=== PATIENT | male | born 1985 | race Caucasian/White ===

== ENCOUNTER 2019-06-14 14:05 | Emergency (ER) | payer SELFPAY ==
[~2019-06-14] VITALS: Ht 170.2 cm; Wt 96.6 kg
[2019-06-14 15:19] VITALS: BP 147/100; Ht 170.2 cm; Wt 96.6 kg
== END 2019-06-14 18:13 | disposition home or self-care (01) ==
LOC: ED 14:05
DX: L04.0 Acute lymphadenitis of face, head and neck (principal)